=== PATIENT | male | born 1995 | race Two or more races ===

== ENCOUNTER 2020-04-19 23:42 | Emergency (ER) | payer BC, OTHER ==
[~2020-04-19] VITALS: Ht 200.7 cm; Wt 74.8 kg
[2020-04-20] MEDS ORDERED: MORPHINE SULFATE 4 MG/ML SYR/VIAL IV ONE ×3 (00:15→04:15)
[2020-04-20] MEDS ORDERED: TETANUS-DIPTH-ACEL PERTUSSIS 0.5ML SYR Tdap IM ONE (00:15)
[2020-04-20] MEDS ORDERED: ONDANSETRON HCL 4 MG/2 ML VIAL IV ONE ×2 (00:15)
[2020-04-20] MEDS ORDERED: LIDOCAINE 1% HCL (LOCAL ANESTH.) INJ 20ML MDV ID ONE (01:00)
[2020-04-20] MEDS ORDERED: HYDROmorphone HCL 2 MG/ML VL IV ONE (04:15)
[2020-04-20] MEDS ORDERED: TETRACAINE HCL 0.5% OPTH(EYE) SOLN 4ML EACHEYE ONE (07:00)
[2020-04-20 09:25] VITALS: BP 116/74
== END 2020-04-20 09:33 | disposition home or self-care (01) ==
LOC: ER 23:42
DX: S04.52XA Injury of facial nerve, left side, initial encounter (principal); S12.490A Other displaced fracture of fifth cervical vertebra, initial encounter for closed fracture; S09.90XA Unspecified injury of head, initial encounter; V86.56XA Driver of dirt bike or motor/cross bike injured in nontraffic accident, initial encounter; Y93.89 Activity, other specified; Y92.89 Other specified places as the place of occurrence of the external cause; Y99.8 Other external cause status
CPT/HCPCS: 70450; 70486; 72125; 90471; 90715; 96374; 96375; 99285; J1170; J2001; J2270; J2405